=== PATIENT | female | born 1985 | race Caucasian/White ===

== ENCOUNTER → 2017-06-15 | Outpatient (CLI) | payer OTHER ==
[2017-06-15 17:20] LABS: HEMATOCRIT 40.2 % (37-47); HEMOGLOBIN 13.5 g/dL (12.0-16.0); MEAN CELL VOLUME 88.9 fL (80-100); MEAN CORPUSCULAR HEMOGLOBIN 29.9 pg (25-34); MEAN CORPUSCULAR HGB CONC 33.6 g/dl (32-36); MEAN PLATELET VOLUME 9.7 fL (7.4-10.4); PLATELET COUNT 243 K/uL (130-400); RED CELL DISTRIBUTION WIDTH CV 12.1 % (11.5-14.5); RED CELL DISTRIBUTION WIDTH SD 39.2 fL (36.4-46.3); WHITE BLOOD COUNT 8.03 K/uL (4.8-10.8)
[2017-06-15 17:40] LABS: BLOOD UREA NITROGEN 16 mg/dl (7-18); CARBON DIOXIDE 28 mmol/L (21-32); CREATININE 0.91 mg/dl (0.60-1.20); GLUCOSE 78 mg/dl (70-99); POTASSIUM 3.7 mmol/L (3.5-5.1); SODIUM 139 mmol/L (136-145)
== END | disposition home or self-care (01) ==
LOC: C.LABPVFM 15:44
PROVIDERS: ATTEND Family Medicine
DX: E06.3 Autoimmune thyroiditis (principal)

== ENCOUNTER → 2017-09-08 | Outpatient (CLI) | payer OTHER ==
[~2017-09-08] MED LIST: LEVO88TA3 PO; NASONEX
== END | disposition home or self-care (01) ==
LOC: C.LABSPEC 17:44
PROVIDERS: ATTEND Obstetrics & Gynecology
DX: Z34.01 Encounter for supervision of normal first pregnancy, first trimester (principal)

== ENCOUNTER → 2017-09-15 | Outpatient (CLI) | payer OTHER | END | disposition home or self-care (01) | LOC: C.LABSPEC 17:16 | PROVIDERS: ATTEND Obstetrics & Gynecology | DX: Z34.01 Encounter for supervision of normal first pregnancy, first trimester (principal); Z3A.00 Weeks of gestation of pregnancy not specified ==

== ENCOUNTER 2018-04-23 13:02 | Inpatient (IN) ==
[2018-04-23] MEDS ORDERED: OXYTOCIN 30 UNITS/500 ML BAG IV PRN ×2 (14:06)
[2018-04-23] MEDS ORDERED: LACTATED RINGER'S 1,000 ML IV PRN ×2 (14:06)
--- NOTE | 2018-04-23 14:27 | History & Physical Report ---
Date of Service April 23, 2018 Assessment & Plan (1) PROM (premature rupture of membranes): Fetus Cat 1 Labor: PROM ~8hr. Will augment with pitocin vital: wnl GBS - PPH: Low risk (2) Normal first confirmed, currently in third trimester: History of Present Illness Primary Care Provider: Neema Almanzar MD 33yo at 39.5. PROM at 0600 this am. Denies regular contraction, or VB. Good FM. complicated by hypothyroidism. Allergies Allergy/AdvReac Type Severity Reaction Status Date / Time nifedipine Allergy Unknown LOWER LEG Verified 08/21/17 07:52 EDEMA Home Medications Home Medications Medication Instructions Recorded Confirmed Type PNV cmb#95-ferrous fumarate-FA 1 tab PO DAILY 04/23/18 04/23/18 History [] levothyroxine 125 mcg PO DAILY 04/23/18 04/23/18 History mometasone [Nasonex] 2 spray INTRANASAL BID 04/23/18 04/23/18 History Patient History Medical History Adult hypothyroidism 2011 Anemia Deviated septum repair in 2014 Tracy's thyroiditis 2011 Nasal polyps 2013; removal in 2014 Raynaud disease diagnosed 2015; currently no treatment [place] teeth removed 2002 Family History Grandfather (Maternal) Heart disease Diabetes Grandmother (Paternal) Heart disease Grandmother (Maternal) Diabetes Mother Depression Social History Preferred Language: Vietnamese Communication Ability: Effective 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
[2018-04-23 14:36] LABS: Hematocrit (blood only) 33.5 % (37-47); Hemoglobin 11.2 g/dL (12.0-16.0); Mean Corpuscular Volume 90.1 fL (80-100); Mean Platelet Volume 9.9 fL (7.4-10.4); Platelet Count 205 K/uL (130-400); RDW Coefficient of Variation 13.5 % (11.5-14.5); RDW Standard Deviation 44.6 fL (36.4-46.3); Red Blood Count 3.72 M/uL (4.2-5.4); White Blood Count 9.81 K/uL (4.8-10.8)
[2018-04-23 14:39] LABS: Mean Corpuscular Hgb Conc 33.4 g/dL (32-36)
[2018-04-23] MEDS: LACTATED RINGER'S 1,000 ML IV SCH ×2 (14:49→22:49)
--- NOTE | 2018-04-23 20:25 | Obstetrical Progress Note ---
Date of Service April 23, 2018 Assessment & Plan (1) PROM (premature rupture of membranes): Fetus Cat 1 Labor: Progressing, Continue pitocin vital: wnl GBS - PPH: Low risk (2) Normal first confirmed, currently in third trimester: Subjective Reporting moderate contractions Physical Exam Vital Signs (Past 24 Hours): Last Vital Signs Temp 36.8 C 04/23/18 19:07 Pulse 74 04/23/18 19:51 Resp 18 04/23/18 19:42 BP 123/76 04/23/18 19:51 Genitourinary: Manual OB Exam: + cervical dilation 3 cm, + cervical effacement 50%, + station -2 and + amniotic fluid No clear OB Exam Monitor Tracing: + category I
[2018-04-24] MEDS ORDERED: BISACODYL 10 MG SUPP PR PRN (01:21)
[2018-04-24] MEDS ORDERED: BENZOCAINE 20% AER SPR 82.5 GM CAN EXT PRN (01:21)
[2018-04-24] MEDS ORDERED: HYDROCORTISONE ACETATE 25 MG SUPP PR PRN (01:21)
[2018-04-24] MEDS ORDERED: SUPERCREAM 0.870% 15 GM JAR EXT PRN (01:21)
[2018-04-24] MEDS ORDERED: DIPHTHERIA/TETANUS/PERTUSSIS 0.5 ML SYR/VIAL IM ONE (01:21)
[2018-04-24] MEDS ORDERED: ACETAMINOPHEN 325 MG TAB PO PRN (01:21)
[2018-04-24] MEDS ORDERED: OXYTOCIN 30 UNITS/500 ML BAG IV PRN (01:21)
[2018-04-24] MEDS ORDERED: IBUPROFEN 600 MG TAB PO PRN (01:21)
[2018-04-24] MEDS: LEVOTHYROXINE SODIUM 125 MCG TABLET PO SCH (08:08)
[2018-04-24] MEDS: PRENATAL VITAMIN 1 TAB PO SCH (09:17)
[2018-04-24] MEDS: DOCUSATE SODIUM 100 MG CAP PO SCH ×2 (09:17→20:28)
--- NOTE | 2018-04-25 06:23 | Obstetrical Progress Note ---
Date of Service April 25, 2018 Assessment & Plan (1) (spontaneous vaginal delivery): -vital signs reviewed and WNL -last Hgb 11.2 -Blood type: O+, GBS-, Rubella Immune -pt doing well clinically -encourage ambulation, monitor and control pain with motrin tylenol, cont regular diet, monitor lochia -cont encourage breast feeding Subjective 33 y/o PPD1 found in bed this morning in NAD. Reports no acute overnight events. Pt states that she has no pain other than appropriate soreness. Tolerating PO intake without N/V. Able to ambulate without issue. She is breast feeding without issue. No issues with voiding, no BM yet. No other acute concerns or complaints. Review of Systems All systems reviewed & are unremarkable except as noted in HPI & below Physical Exam Vital Signs (Past 24 Hours) Last Vital Signs Temp 36.8 C 04/24/18 23:30 Pulse 64 04/24/18 23:30 Resp 18 04/24/18 23:30 BP 120/80 04/24/18 23:30 Pulse Ox 99 04/24/18 08:00 Constitutional WD/WN, vitals as above Eyes PERRL, conjunctivae normal, anicteric sclerae ENMT external ear and nose normal, oropharynx normal Respiratory normal respiratory effort, lungs clear to auscultation Cardiovascular RRR, no murmur, no edema Gastrointestinal (Abdomen) mild abd tenderness Skin no rashes, warm and dry Psychiatric A+Ox3, euthymic affect Lymphatic mild R LE swelling, no calf tenderness Results & Data Medications Administered Current Inpatient Medications Acetaminophen (Tylenol) 650 mg PO Q6H PRN PRN Reason: Pain/MARIN/Fever Stop: 05/24/18 01:20 Benzocaine (Dermoplast Pain Relieving [place]) 1 appln EXT PRN PRN PRN Reason: Perineal Discomfort Stop: 05/24/18 01:20 Bisacodyl (Dulcolax) 5 mg PO 1999 TOMY Stop: 04/25/18 20:01 Bisacodyl (Dulcolax) 10 mg AL DAILY PRN PRN Reason: No BM on 2nd post- day Stop: 05/24/18 01:20 Cocaine HCl (Supercream 0.870%) 1 gm EXT BID PRN PRN Reason: Hemorrhoidal Inflammation Stop: 05/08/18 01:20 Docusate Sodium (Colace) 100 mg PO BID [facility] Stop: 05/24/18 08:59 Last Admin: 04/24/18 20:28 Dose: 100 mg Documented by: Hydrocortisone (Anusol Hc) 25 mg AL BID PRN PRN Reason: Hemorrhoidal Inflammation Stop: 05/24/18 01:20 Lactated Ringer's (Lr) 1,000 mls @ 999 mls/hr IV .Q1H1M PRN PRN Reason: (Pre-Anesthesia) Stop: 05/23/18 14:05 Lactated Ringer's (Lr) 1,000 mls @ 999 mls/hr IV .Q1H1M PRN PRN Reason: Tachysystole Stop: 04/25/18 14:05 Lactated Ringer's (Lr) 1,000 mls @ 125 mls/hr IV .Q8H [facility] Stop: 04/25/18 14:14 Last Infusion: 04/24/18 03:30 Dose: Infused Documented by: Oxytocin (Pitocin) 30 units in 500 mls @ 333.333 mls/hr IV .Q1H30M PRN; Protocol PRN Reason: Bleeding Control Stop: 05/23/18 14:05 Last Admin: 04/24/18 01:11 Dose: 20 units/hr, 333.3 mls/hr Documented by: Oxytocin (Pitocin) 30 units in 500 mls @ 999 mls/hr IV .Q31M PRN; Protocol PRN Reason: Labor Induction/Augmentation Stop: 04/25/18 14:05 Last Titration: 04/24/18 00:48 Dose: 59.94 units/hr, 999 mls/hr Documented by: Oxytocin (Pitocin) 30 units in 500 mls @ 333.333 mls/hr IV .Q1H30M PRN; Protocol PRN Reason: BLEEDING CONTROL Ibuprofen (Motrin) 600 mg PO Q4H PRN PRN Reason: Pain/MARIN/Cramping/Fever Stop: 05/24/18 01:20 Levothyroxine Sodium (Synthroid) 125 mcg PO DAILYBB [facility] Stop: 05/24/18 08:59 Last Admin: 04/24/18 08:08 Dose: 125 mcg Documented by: Prenat Multivit/Chocolate Maker/Iron/Folic Ac ( Vitamin) 1 tab PO QAM [facility] Stop: 05/24/18 08:59 Last Admin: 04/24/18 09:17 Dose: 1 tab Documented by: Resident Activity Tracking Resident Involvement: Resident Care Provided Care Provided: OB Delivery
[2018-04-25] MEDS: LEVOTHYROXINE SODIUM 125 MCG TABLET PO SCH (06:39)
[2018-04-25 07:03] LABS: Hematocrit (blood only) 31.7 % (37-47); Hemoglobin 10.5 g/dL (12.0-16.0); Mean Corpuscular Hgb Conc 33.1 g/dL (32-36); Mean Corpuscular Volume 92.4 fL (80-100); Mean Platelet Volume 10.1 fL (7.4-10.4); Platelet Count 189 K/uL (130-400); RDW Coefficient of Variation 13.8 % (11.5-14.5); RDW Standard Deviation 45.9 fL (36.4-46.3); Red Blood Count 3.43 M/uL (4.2-5.4); White Blood Count 12.78 K/uL (4.8-10.8)
[2018-04-25] MEDS: PRENATAL VITAMIN 1 TAB PO SCH (08:08)
[2018-04-25] MEDS: DOCUSATE SODIUM 100 MG CAP PO SCH ×2 (08:08→20:31)
[2018-04-25] MEDS ORDERED: BISACODYL 5 MG TABEC PO SCH (20:00)
[2018-04-26] MEDS: LEVOTHYROXINE SODIUM 125 MCG TABLET PO SCH (06:23)
--- NOTE | 2018-04-26 06:39 | Obstetrical Progress Note ---
Date of Service <Meliton Preet Ron - Last Filed: 04/26/18 06:38> April 26, 2018 Assessment & Plan <Meliton MatildeKavita Velasquez - Last Filed: 04/26/18 06:38> (1) (spontaneous vaginal delivery): -vital signs reviewed and WNL -last Hgb 10.5 -Blood type: O+, GBS-, Rubella Immune -pt doing well clinically -encourage ambulation, monitor and control pain with motrin tylenol, cont regular diet, monitor lochia -cont encourage breast feeding -plan for d/c today Subjective <Meliton CKavita Velasquez - Last Filed: 04/26/18 06:38> 33 y/o PPD2 found in bed this morning in NAD. Reports no acute overnight events. Pt states that she has no pain other than appropriate soreness. Tolerating PO intake without N/V. Able to ambulate without issue. She is breast feeding with some difficulty (R better than L side, associated tenderness). No issues with voiding, no BM yet. No other acute concerns or complaints. Pt ok with plan for d/c today. Review of Systems All systems reviewed & are unremarkable except as noted in HPI & below Physical Exam <Meliton C. Ron - Last Filed: 04/26/18 06:38> Vital Signs (Past 24 Hours) Last Vital Signs Temp 36.8 C 04/25/18 23:20 Pulse 73 04/25/18 23:20 Resp 18 04/25/18 23:20 BP 126/71 04/25/18 23:20 Pulse Ox 99 04/25/18 15:55 Constitutional WD/WN, vitals as above Eyes PERRL, conjunctivae normal, anicteric sclerae ENMT external ear and nose normal, oropharynx normal Respiratory normal respiratory effort, lungs clear to auscultation Cardiovascular RRR, no murmur, no edema Gastrointestinal (Abdomen) mild abd tenderness Skin no rashes, warm and dry Psychiatric A+Ox3, euthymic affect Lymphatic R LE swelling improved from yesterday, no calf tenderness. Results & Data <Melitonjessica Velasquez DO - Last Filed: 04/26/18 06:38> Laboratory Results Laboratory Results - last 24 hr 04/25/18 06:14 WBC 12.78 H RBC 3.43 L Hgb 10.5 L Hct 31.7 L MCV 92.4 MCH 30.6 MCHC 33.1 RDW Std Deviation 45.9 RDW Coeff of Jaden 13.8 Plt Count 189 MPV 10.1 Medications Administered Current Inpatient Medications Acetaminophen (Tylenol) 650 mg PO Q6H PRN PRN Reason: Pain/MARIN/Fever Stop: 05/24/18 01:20 Benzocaine (Dermoplast Pain Relieving [place]) 1 appln EXT PRN PRN PRN Reason: Perineal Discomfort Stop: 05/24/18 01:20 Bisacodyl (Dulcolax) 10 mg MA DAILY PRN PRN Reason: No BM on 2nd post- day Stop: 05/24/18 01:20 Cocaine HCl (Supercream 0.870%) 1 gm EXT BID PRN PRN Reason: Hemorrhoidal Inflammation Stop: 05/08/18 01:20 Docusate Sodium (Colace) 100 mg PO BID [facility] Stop: 05/24/18 08:59 Last Admin: 04/25/18 20:31 Dose: 100 mg Documented by: Hydrocortisone (Anusol Hc) 25 mg MA BID PRN PRN Reason: Hemorrhoidal Inflammation Stop: 05/24/18 01:20 Lactated Ringer's (Lr) 1,000 mls @ 999 mls/hr IV .Q1H1M PRN PRN Reason: (Pre-Anesthesia) Stop: 05/23/18 14:05 Oxytocin (Pitocin) 30 units in 500 mls @ 333.333 mls/hr IV .Q1H30M PRN; Protocol PRN Reason: Bleeding Control Stop: 05/23/18 14:05 Last Admin: 04/24/18 01:11 Dose: 20 units/hr, 333.3 mls/hr Documented by: Oxytocin (Pitocin) 30 units in 500 mls @ 333.333 mls/hr IV .Q1H30M PRN; Protocol PRN Reason: BLEEDING CONTROL Ibuprofen (Motrin) 600 mg PO Q4H PRN PRN Reason: Pain/MARIN/Cramping/Fever Stop: 05/24/18 01:20 Levothyroxine Sodium (Synthroid) 125 mcg PO DAILYBB TOMY Stop: 05/24/18 08:59 Last Admin: 04/26/18 06:23 Dose: 125 mcg Documented by: Prenat Multivit/[place]/Iron/Folic Ac ( Vitamin) 1 tab PO QAM TOMY Stop: 05/24/18 08:59 Last Admin: 04/25/18 08:08 Dose: 1 tab Documented by: <Simone Davenport Jr, MD, FACOG - Last Filed: 04/26/18 07:20> Co-Signing Physician Notes Resident Physician Supervision Note: I was present with Dr. Velasquez during the history and exam. I discussed the case with the resident and agree with the findings and plan as documented in the note. Any exceptions or clarifications are listed here: Patient desires d/c, instructions given, f/u in 6 weeks Documented By: Simone Davenport Jr, MD, FACOG Resident Activity Tracking <Meliton Velasquez, - Last Filed: 04/26/18 06:38> Resident Involvement: Resident Care Provided Care Provided: OB Delivery
[2018-04-26 07:17] LABS: Hematocrit (blood only) 33.1 % (37-47)
[2018-04-26] MEDS: DOCUSATE SODIUM 100 MG CAP PO SCH (09:00)
[2018-04-26] MEDS: PRENATAL VITAMIN 1 TAB PO SCH (09:00)
--- NOTE | 2018-05-02 10:39 | Delivery Summary ---
DATE OF OPERATION: 04/24/2018 PROCEDURE: Normal spontaneous vaginal delivery repair. SURGEON: Dell Xie MD PREOPERATIVE DIAGNOSES: 1. Single intrauterine at 40 weeks' gestational age. 2. Premature rupture of membranes. 3. Advanced maternal age. 4. Tracy's thyroiditis. POSTOPERATIVE DIAGNOSES: 1. Single intrauterine at 40 weeks' gestational age. 2. Premature rupture of membranes. 3. Advanced maternal age. 4. Tracy's thyroiditis. 5. Delivered. ESTIMATED BLOOD LOSS: 300 mL. DRAINS: None. FLUIDS: Continuous lactated ringer. URINE OUTPUT: Not measured. FINDINGS: Viable with weight and Apgars per EMR. INDICATIONS: Ms. Goode is a 33-year-old G1, P0, admitted at 39 weeks 5 days gestational age with premature rupture of membranes at 6:00 a.m. on day of admission. On initial evaluation, the patient was found to be 1 cm dilated, 50% effaced, negative 2 station. She was started on oxytocin per regular protocol. She continued to progress in labor. DESCRIPTION OF PROCEDURE: The patient progressed to 10 cm dilated, 100% effaced positive 2 station, pushed over intact perineum without epidural anesthesia and delivered a viable with weight and Apgars per EMR. The head of the delivered in CRISTINA position and rest into right transverse. A single loose nuchal was noted which was easily reduced. Body and shoulders quickly followed. was noted to be vigorous soon after delivery. A 1-minute delayed cord clamping was initiated, after which the cord was double clamped and cut. The attention was then turned to the delivery of the placenta which was delivered intact with 3-vessel cord with gentle cord traction. On inspection of the vagina, perineum and cervix, there was noted to be no lacerations. Needle, sponge and instrument counts were correct at the completion of the case. I attest to the content of the Intraoperative Record and any orders documented therein. Any exceptions are noted below. MTDD
== END 2018-04-26 15:20 | disposition home or self-care (01) | DRG 807 ==
LOC: OPB 13:02 → 4S1 13:02 → 4S2 04-24 04:15

== ENCOUNTER 2021-02-22 07:23 | Inpatient (IN) ==
[2021-02-22] MEDS ORDERED: OXYTOCIN 30 UNITS/500 ML BAG IV PRN ×3 (07:50→19:47)
[2021-02-22] MEDS ORDERED: PENICILLIN G POTASSIUM 6 MU in DEXTROSE 5% 250 ML IV STA (07:50)
[2021-02-22 08:26] LABS: Hematocrit (blood only) 34.7 % (37-47); Hemoglobin 11.7 g/dL (12.0-16.0); Mean Corpuscular Hemoglobin 30.5 pg (25-34); Mean Corpuscular Hgb Conc 33.7 g/dL (32-36); Mean Corpuscular Volume 90.4 fL (80-100); Mean Platelet Volume 9.6 fL (7.4-10.4); Platelet Count 270 K/uL (130-400); RDW Coefficient of Variation 13.3 % (11.5-14.5); RDW Standard Deviation 43.7 fL (36.4-46.3); Red Blood Count 3.84 M/uL (4.2-5.4); White Blood Count 9.24 K/uL (4.8-10.8)
[2021-02-22] MEDS: LACTATED RINGER'S 1,000 ML IV PRN ×2 (08:44→16:43)
[2021-02-22] MEDS: PENICILLIN G POTASSIUM 3 MU in DEXTROSE 5% 100 ML IV PRN ×2 (12:57→16:43)
--- NOTE | 2021-02-22 13:08 | History & Physical Report ---
Date of Service February 22, 2021 Assessment & Plan (1) Encounter for induction of labor: (2) GBS carrier: (3) Supervision of elderly multigravida: (4) Post term over 40 weeks: Plan: admit, iv, labs. cervical van placed and pitocin infusing. will arom when able. fhts categ 1. Admission and Anticipated Discharge Date Admission Date: February 22, 2021 History of Present Illness Chief Complaint: planned induction Primary Care Provider: Neema Almanzar MD 36yo at 40 6/7 wk egedwin presents to L&D with above cc. She is postdates. She denies rom, vb. +FM. No ctx PNC c/b 1. AMA 2. GBS pos 3. Postdates 4. Hypothyroid. PNL Rh pos, RI, gbs pos Allergies Allergy/AdvReac Type Severity Reaction Status Date / Time nifedipine Allergy Unknown LOWER LEG Verified 02/19/21 13:58 EDEMA Home Medications Medication Instructions Recorded Confirmed Type prenat.vits,osiel,xug-vuha-dzjrg 1 tab PO DAILY 07/09/20 02/22/21 History levothyroxine 137 mcg tablet 137 mcg PO DAILY #30 tab 09/21/20 02/22/21 Rx breast pump #1 ea NS 01/27/21 02/19/21 Rx Patient History Medical History (Updated 02/22/21 @ 13:14 by Iris Velasquez MD, FACOG) History of anemia Nasal polyps 2013; removal in 2014 Raynaud disease diagnosed 2015; currently no treatment Surgical History History of nasal polypectomy Hx of nasal septoplasty [place] teeth removed 2002 Family History Grandfather (Maternal) Heart disease Diabetes Grandmother (Paternal) Heart disease Grandmother (Maternal) Diabetes Mother Depression Anxiety Hypertension High cholesterol Asthma Father Anxiety Hypertension High cholesterol Brother Depression Uncle Alcohol abuse Drug abuse Aunt Breast cancer Social History (Updated 07/09/20 @ 08:19 by Irma Solis) Smoking Status: Never smoker Second Hand Exposure: No; Hx Alcohol Use: No Hx Substance Use: No Preferred Language: Albanian Communication Ability: Effective Visual Impairment: Limited Hearing Ability: Normal Icer Hand Required: No Beliefs That Will Affect Care: None marital status: marital status details: Walter (41) [phone] Current Living Situation: Spouse Current Living Situation Comment: lives with spouse and son, no pets. current occupational status: employed current occupation: education program coordinator Other Information That Helps Us Care for You: No Feels Safe at Home: Yes Safety Concerns: Feels Safe At This Time Childhood Exposure to Second-Hand Smoke: Yes caffeine: Yes Dental Care, Regularly: Yes Physical Activity Frequency: Does not Exercise Seatbelt Use: always Sunscreen Use: Yes Assistive Devices: Glasses Review of Systems as per Subjective / HPI Physical Exam Constitutional: WD/WN, vitals as above Respiratory: normal respiratory effort, lungs clear to auscultation Cardiovascular: Rate/Rhythm: regular rate and regular rhythm Gastrointestinal (Abdomen): soft gravid nt Musculoskeletal: no edema nontender calves Neurologic: grossly normal Psychiatric: A+Ox3, euthymic affect Genitourinary: OB Exam Abdomen: + estimated weight (8-9#) Manual OB Exam: + cervical dilation (1+), + cervical effacement 50% and + station -1 OB Exam Monitor Tracing: + external FHT monitor used, + external uterine monitor used (no regular ctx on admit), + category I and + normal FHT variability PROCEDURE: sse cx visualized, grasped on ant lip with ring forcep, van through os and balloon inflated with 40cc sterile water. Spec removed, van taped to leg. pt alireza well. Results & Data ([facility]) Vital Signs (Past 12 Hours) Vital Signs Temp Pulse Resp BP 02/22/21 12:56 76 137/88 02/22/21 11:44 98.1 F 81 18 129/77 02/22/21 10:33 81 126/88 02/22/21 09:33 80 122/80 02/22/21 08:05 97.7 F 18 02/22/21 07:59 93 H 138/83 Code Status & VTE Plan VTE Prophylaxis Plan VTE Prophylaxis will be ordered: No Coding Level of Care Code None Diagnoses Encounter for induction of labor Z34.90 GBS carrier Z22.330 Supervision of elderly multigravida O09.529 Post term over 40 weeks O48.0
[2021-02-22] MEDS ORDERED: ACETAMINOPHEN 325 MG TAB PO STA (15:32)
--- NOTE | 2021-02-22 15:32 | Labor Progress Brief Note ---
Date of Service February 22, 2021 Subjective feeling pain with ctx. has almodovar and asking for tylenol Assessment & Plan (1) Post term over 40 weeks: (2) Encounter for induction of labor: (3) GBS carrier: Plan: c/w pit, keep ctx regular. fhts categ 1. tylenol x 1 ordered Admission and Anticipated Discharge Date Admission Date: February 22, 2021 Physical Exam Constitutional: WD/WN, vitals as above Genitourinary: Manual OB Exam: + cervical dilation 3 cm, + cervical effacement 50%, + station -2 and + amniotic fluid clear OB Exam Monitor Tracing: + external FHT monitor used, + external uterine monitor used (q3 pit at 9), + category I and + normal FHT variability Results & Data ([facility]) Vital Signs (Past 12 Hours) Vital Signs Temp Pulse Resp BP 02/22/21 14:46 73 136/84 02/22/21 14:15 18 02/22/21 13:45 74 18 138/82 02/22/21 12:56 76 137/88 02/22/21 11:44 98.1 F 81 18 129/77 02/22/21 10:33 81 126/88 02/22/21 09:33 80 122/80 02/22/21 08:05 97.7 F 18 02/22/21 07:59 93 H 138/83 Coding Level of Care Code None Diagnoses Post term over 40 weeks O48.0 Encounter for induction of labor Z34.90 GBS carrier Z22.330
[2021-02-22] MEDS ORDERED: ACETAMINOPHEN 325 MG TAB ONE (15:33)
[2021-02-22] MEDS ORDERED: LIDOCAINE 1% LOCAL 20 ML VIAL ONE (19:23)
--- NOTE | 2021-02-22 19:44 | Delivery Summary ---
Vaginal Delivery Summary Date of Service February 22, 2021 Vaginal Delivery Summary The patient dilated to complete and pushed to deliver a viable female infant Apgars 8 and 9 via over intact perineum. Loose double nuchal cord x 2 delivered through. Mouth and nose bulb suctioned at perineum. Shoulders and body delivered with ease. was vigorous and crying at . Cord clamped at about 60 seconds of life and to maternal abdomen where the cord was then doubly clamped and cut. Placenta delivered spontaneously and intact, three-vessel cord. Hemostasis achieved with dilute pitocin and uterine massage. Laceration near urethra repaired due to bleeding with 4-0 vicryl after 1% local lidocaine anesthesia. Straight cath used to ensure easy passage at urethra and no issues identified. Cervix and sulci intact. EBL 300 cc. Mother and baby stable recovery. [facility] Vaginal Delivery Charge Delivery Type Details:
[2021-02-22] MEDS ORDERED: BENZOCAINE 20% AER SPR 82.5 GM CAN EXT PRN (19:47)
[2021-02-22] MEDS ORDERED: oxyCODONE/ACETAMINOPHEN 5mg/325mg TAB PO PRN (19:47)
[2021-02-22] MEDS ORDERED: OXYTOCIN 20 UNITS in LACTATED RINGER'S 1,000 ML IV SCH (19:47)
[2021-02-22] MEDS ORDERED: HYDROCORTISONE ACETATE 25 MG SUPP PR PRN (19:47)
[2021-02-22] MEDS ORDERED: ACETAMINOPHEN 325 MG TAB PO PRN (19:47)
[2021-02-22] MEDS ORDERED: SUPERCREAM 0.870% 15 GM JAR EXT PRN (19:47)
[2021-02-22] MEDS ORDERED: DIPHTHERIA/TETANUS/PERTUSSIS 0.5 ML SYR/VIAL IM ONE (19:47)
[2021-02-22] MEDS: IBUPROFEN 600 MG TAB PO PRN (21:12)
[2021-02-22] MEDS: DOCUSATE SODIUM 100 MG CAP PO SCH (21:12)
[2021-02-23] MEDS: IBUPROFEN 600 MG TAB PO PRN (06:10)
[2021-02-23] MEDS: LEVOTHYROXINE SODIUM 137 MCG TABLET PO SCH (06:10)
--- NOTE | 2021-02-23 06:29 | Obstetrical Progress Note ---
Date of Service <Art Alexis DO - Last Filed: 02/23/21 07:55> February 23, 2021 Assessment & Plan <Art Alexis DO - Last Filed: 02/23/21 07:55> (1) Encounter for care and examination after delivery: 36 yo post day 1 from vaginal delivery, doing well. -Continue routine post care. - vital signs reviewed and WNL. (Tmax 36.9) -Blood type O+, GBS +, Rubella Immune -Encourage ambulation, monitor and control pain with Motrin, tylenol PRN, resume regular diet, monitor lochia. -encourage breast feeding. Breast pump - already has. <Iris Velasquez MD, FACOG - Last Filed: 02/23/21 09:04> (1) Encounter for care and examination after delivery: Subjective <Art Alexis DO - Last Filed: 02/23/21 07:55> Ambulation: ambulating normally Voiding: no voiding problems Passing Gas:: Yes Diet Tolerance:: regular diet Lochia:: Small Feeding Type:: breast feeding Current Pain Level(1-10): 0 Review of Systems Denies fever, chills, sweats Denies shortness of breath, difficulty breathing, chest pain, palpitations, chest pressure. Denies breast pain. Denies dysuria. Denies headache or changes in vision Physical Exam <Art Alexis DO - Last Filed: 02/23/21 07:55> General: Alert, oriented. No acute distress. Cardiac: Regular rate and rhythm, no murmurs/rubs/gallops. Respiratory: Clear to auscultation bilaterally a/p, no wheezes/rales/rhonchi. No increased work of breathing. Symmetrical chest rise. No respiratory distress. Abdomen: Soft, nontender, nondistended. Bowel sounds present. Uterus: Uterine fundus firm, palpable 1 cm below umbilicus. Lower Extremities: No lower extremity edema or swelling. No deep calf pain. Brooklynn's negative bilaterally Results & Data ([facility]) <Art Alexis DO - Last Filed: 02/23/21 07:55> Vital Signs (Past 12 Hours) Vital Signs Temp Pulse Pulse Resp BP BP 02/23/21 03:55 36.8 C 80 18 126/80 02/23/21 00:00 36.7 C 78 20 121/76 02/22/21 21:38 85 127/60 02/22/21 21:35 91 H 18 129/60 02/22/21 21:23 91 H 129/60 02/22/21 21:08 94 H 139/58 L 02/22/21 21:05 91 H 18 129/60 02/22/21 20:53 85 131/67 02/22/21 20:40 91 H 18 129/60 02/22/21 20:38 78 140/82 02/22/21 20:35 78 18 140/82 02/22/21 20:25 73 18 145/80 H 02/22/21 20:23 73 145/80 H 02/22/21 20:08 79 132/76 02/22/21 20:05 74 139/73 02/22/21 19:55 74 18 139/73 02/22/21 19:53 84 155/82 H 02/22/21 19:40 83 18 155/80 H 02/22/21 19:39 83 155/80 H 02/22/21 19:05 36.9 C 18 <Iris Velasquez MD, FACOG - Last Filed: 02/23/21 09:04> Co-Signing Physician Notes Resident Physician Supervision Note: I was present with Dr. Alexis during the history and exam. I discussed the case with the resident and agree with the findings and plan as documented in the note. Any exceptions or clarifications are listed here: doing well, eating, voiding, ambulating. has flat nipples so working on the nursing. was adeq treated with gbs, offered dc later and pt would like if feeding going well. instructions reviewed. f/u 6wk pp reveiwed. rh pos, ri. Documented By: Iris Velasquez MD, FACOG Resident Activity Tracking <Art Alexis DO - Last Filed: 02/23/21 07:55> Resident Involvement: Resident Care Provided Care Provided: OB Delivery
[2021-02-23] MEDS: PRENATAL VITAMIN 1 TAB PO SCH (08:10)
[2021-02-23] MEDS: DOCUSATE SODIUM 100 MG CAP PO SCH ×2 (08:10→20:16)
[2021-02-24] MEDS: IBUPROFEN 600 MG TAB PO PRN ×2 (03:12→08:00)
[2021-02-24] MEDS: LEVOTHYROXINE SODIUM 137 MCG TABLET PO SCH (06:16)
--- NOTE | 2021-02-24 06:25 | Obstetrical Progress Note ---
Date of Service <Art Alexis DO - Last Filed: 02/24/21 07:21> February 24, 2021 Assessment & Plan <Art Alexis DO - Last Filed: 02/24/21 07:21> (1) Encounter for care and examination after delivery: 36 yo post day 1 from vaginal delivery, doing well. -Continue routine post care. -vital signs reviewed and WNL. (Tmax 36.9) -Blood type O+, GBS +, Rubella Immune -Encourage ambulation, monitor and control pain with Motrin, tylenol PRN, resume regular diet, monitor lochia. -encourage breast feeding. Breast pump - already has. -Patient plan for discharge today. Discussed discharge with patient. She will follow up with Dr. Velasquez in office in 6 weeks. <Keysha Gamble MD, FACOG - Last Filed: 02/24/21 07:22> (1) Encounter for care and examination after delivery: Subjective <Art Alexis DO - Last Filed: 02/24/21 07:21> Ambulation: ambulating normally Voiding: no voiding problems Diet Tolerance:: regular diet Lochia:: Small Feeding Type:: breast feeding Current Pain Level(1-10): 0 Review of Systems Denies fever, chills, sweats Denies shortness of breath, difficulty breathing, chest pain, palpitations, chest pressure. Denies breast pain. Denies dysuria. Denies headache or changes in vision Physical Exam <Art Alexis DO - Last Filed: 02/24/21 07:21> General: Alert, oriented. No acute distress. Cardiac: Regular rate and rhythm, no murmurs/rubs/gallops. Respiratory: Clear to auscultation bilaterally a/p, no wheezes/rales/rhonchi. No increased work of breathing. Symmetrical chest rise. No respiratory distress. Abdomen: Soft, nontender, nondistended. Bowel sounds present. Uterus: Uterine fundus firm, palpable 1 cm below umbilicus. Lower Extremities: No lower extremity edema or swelling. No deep calf pain. Brooklynn's negative bilaterally Results & Data ([facility]) <Art Alexis DO - Last Filed: 02/24/21 07:21> Vital Signs (Past 12 Hours) Vital Signs Temp Pulse Resp BP Pulse Ox 02/23/21 23:00 36.6 C 70 16 128/78 94 02/23/21 19:20 36.7 C 84 16 130/82 97 <Keysha Gamble MD, FACOG - Last Filed: 02/24/21 07:22> Co-Signing Physician Notes Resident Physician Supervision Note: I interviewed and examined the patient. Discussed with Dr. Vann and agree with findings and plan as documented in the note. Any exceptions or clarifications are listed here: Doing well. Plan d/c later today. d/c instructions reviewed. Documented By: Keysha Gamble MD, FACOG Resident Activity Tracking <Art Alexis DO - Last Filed: 02/24/21 07:21> Resident Involvement: Resident Care Provided Care Provided: OB Delivery
[2021-02-24] MEDS: PRENATAL VITAMIN 1 TAB PO SCH (08:00)
[2021-02-24] MEDS: DOCUSATE SODIUM 100 MG CAP PO SCH (08:00)
== END 2021-02-24 12:57 | disposition home or self-care (01) | DRG 807 ==
LOC: 4S1 07:23 → 4S2 22:14